=== PATIENT | female | born 1975 | race Caucasian/White ===

== ENCOUNTER 2018-12-14 07:11 | Inpatient (IN) | payer MEDICAID, OTHER ==
[~2018-12-14] VITALS: Ht 175.3 cm; Wt 74.6 kg
[2018-12-14] MEDS ORDERED: SODIUM CHLORIDE 0.9% 1,000 ML IV ONE (07:34)
[2018-12-14] MEDS ORDERED: KETOROLAC TROMETH 15 mg/ml 1ML VL IV ONE (07:45)
[2018-12-14] MEDS: PROMETHAZINE HCL 25 MG/ML 1ML IV PRN (08:02)
[2018-12-14 08:11] LABS: Basophils # (auto) 0 uL; Basophils % (auto) 0.3 % (0.0-2.0); Eosinophils # (auto) 0.1 uL; Eosinophils % (auto) 1.4 % (0.0-7.0); Hematocrit 43.5 % (36.0-46.0); Hemoglobin 15.1 g/dL (12.2-16.2); Lymphocytes # (auto) 1.4 uL; Mean Corpuscular Hgb Conc. 34.7 g/dL (32.0-36.0); Mean Corpuscular Volume 92.2 fL (80.0-100.0); Monocytes # (auto) 0.6 uL; Neutrophils # (auto) 6.9 uL; Neutrophils % (auto) 76.3 % (37.0-80.0); Nucleated Red Blood Cells % 0.1 %; Platelet Count (auto) 212 10^3/uL (140-450); Red Blood Cells 4.72 10^6/uL (4.0-5.20); Red Cell Distribution Width 12.5 % (11.8-14.3); White Blood Cell 9.1 10^3/uL (4.4-10.8)
[2018-12-14 08:27] LABS: Albumin 4.2 g/dL (3.4-5.0); BUN/Creatinine Ratio 15.7; Calcium 8.8 mg/dL (8.5-10.1); Magnesium 2.2 mg/dL (1.6-2.6); Potassium 3.5 mmol/L (3.5-5.1)
[2018-12-14 08:37] LABS: Total Protein 8.3 g/dL (6.4-8.2)
[2018-12-14 09:37] LABS: Urine Bacteria NONE SEEN /hpf (None Seen); Urine Blood TRACE /uL (Negative); Urine Mucus FEW (None Seen); Urine Specific Gravity 1.016 (1.001-1.035); Urine WBC 8 /hpf (0 - 5)
[2018-12-14] MEDS ORDERED: cefTRIAXone 1GM/50ML D5W 50 ML IV ONE (11:30)
[2018-12-14 11:42] LABS: Cholesterol 164 mg/dL (< 200); Triglycerides 472 mg/dL (< 150)
[2018-12-14 11:45] LABS: HDL Cholesterol 46 mg/dL (40-59)
[2018-12-14] MEDS: LACTATED RINGER'S 1,000 ML IV SCH ×2 (11:45→19:45)
[2018-12-14] MEDS ORDERED: NITROGLYCERIN 0.4 MG SL TAB SL PRN (11:45)
[2018-12-14] MEDS ORDERED: MORPHINE SULF INJ 2 MG/ML SYRINGE 1ML IV PRN (11:45)
[2018-12-14] MEDS: FOLIC ACID 1 MG, MULTIPLE VITAMIN 10 ML, MAGNESIUM SULF SDV 50% 8 MEQ, THIAMINE INJ 100... INJ SCH ×5 (12:00)
--- NOTE | 2018-12-14 12:35 | NUR ---
REPORT REPORT RECEIVED FROM SATYA CHUA
--- NOTE | 2018-12-14 13:30 | NUR ---
RECEIVED PATIENT TO THE FLOOR AWAKE ALERT AND ORIENTED. PATIENT AMBULATORY HOWEVER IS IN PAIN 7/10 . WILL CHECK THE EMAR AND MEDICATE ORDERED. BED LOCKED IN LOWEST POSITION WITH TWO SIDE RAILS UP AND CALL LIGHT IN REACH. WILL CONTINUE TO MONITOR. EDUCATED PATIENT ON THE PLAN OF CARE AND TO CALL IF ANYTHING IS NEEDED.
[2018-12-14] MEDS: HYDROmorphone HCL 2 MG/ML VL IV PRN ×3 (13:49→20:38)
--- NOTE | 2018-12-14 14:46 | NUR ---
ORDERS ORDERS WHEN PATIENT CAME UP SAID NPO EXCEPT ICE CHIPS (ACTIVE), HOWEVER ORDER WAS NOT IN STATUS BAR ACTIVE. REPLACED THE ORDER AGAIN.
[2018-12-14 17:00] VITALS: BP 174/93
--- NOTE | 2018-12-14 17:43 | NUR ---
BLOOD PRESSURE PATIENT HAVING HIGH BLOOD PRESSURE SHE IS IN PAIN. I LET HER KNOW I CAN PAGE HOSPITALIST AND LET THEM KNOW SHE DOES NOT WANT TO BECAUSE SHE DOES NOT HAVE HTN AND DOES NOT WANT ANY MEDICATION FOR IT AT THIS TIME. WILL MEDICATE FOR PAIN AND CONTINUE TO MONITOR.
[2018-12-14] MEDS ORDERED: LABETALOL HCL 5 MG/ML ML 20ML VIAL IV PRN (19:30)
[2018-12-14] MEDS: ONDANSETRON HCL 4 MG/2 ML VIAL IV PRN (20:00)
--- NOTE | 2018-12-14 20:30 | NUR ---
BLOOD PRESSURE RECHECKED PATIENT'S BP AFTER RECEIVING LABETALOL IS 197/106 ON RIGHT ARM. RECHECKED ON LEFT ARM SHOWED 166/102. LABETALOL NOT DUE AT THIS TIME. WILL ATTEMPT TO GIVE PAIN MEDICINE AND WILL REASSESS.
--- NOTE | 2018-12-14 21:04 | NUR ---
BP RECHECKED PATIENT AMBULATED TO RESTROOM AND WAS GIVEN PAIN MEDICINE. BP RECHECKED AND BP IS 155/106. WILL CONTINUE TO MONITOR.
[2018-12-14 21:57] VITALS: BP 162/89
[2018-12-14] MEDS ORDERED: hydrALAZINE HCL 20 MG/ML VL IV ONE (22:45)
[2018-12-14] MEDS: LORazepam 2MG/ML-1ML VIAL IV PRN (23:03)
--- NOTE | 2018-12-14 23:36 | NUR ---
bp recheck After administering medication per md orders. bp rechecked with bp 158/96. will continue to monitor.
--- NOTE | 2018-12-15 00:17 | NUR ---
Bp rechecked and ekg performed BP rechecked after administering 155/91. heart rate at this time also checked showing hr in 120s and increased to 130s when sitting up. EKG performed showing sinus tachycardia and incomplete right BBB. will contact hospitalist and report new findings. will continue to monitor.
[2018-12-15 00:30] VITALS: BP 155/98
--- NOTE | 2018-12-15 00:35 | NUR ---
HOSPITALIST CONTACTED INFORMED HOSPITALIST OF BP RECHECKS AND NEW SIGNS OF ELEVATED HR. PATIENT TRANSFERRED TO TELEMETRY AND WILL CONTINUE TO MONITOR FOR NOW. ATIVAN TO BE ADMINISTERED FOR ALCOHOL WITHDRAWAL.
--- NOTE | 2018-12-15 02:34 | NUR ---
SPOKE WITH AFTER HOURS PHARMACY AFTER SPEAKING WITH PATIENT, PATIENT DENIES AN ALLERGY TO ACETAMINOPHEN AND STATES THAT SHE IS JUST NOT SUPPOSED TO TAKE TOO MUCH. INFORMED AFTER HOURS PHARMACY TO ACTIVATE ORDER. WILL CONTINUE TO MONITOR. Addendum: 12/15/18 at 0237 by LOUIE BROWN RN WRONG PATIENT PLEASE DISREGARD
[2018-12-15] MEDS: LORazepam 2MG/ML-1ML VIAL IV PRN ×2 (02:49→14:54)
[2018-12-15] MEDS: LACTATED RINGER'S 1,000 ML IV SCH ×3 (03:45→20:49)
[2018-12-15] MEDS: ONDANSETRON HCL 4 MG/2 ML VIAL IV PRN ×2 (04:11→08:16)
[2018-12-15 05:00] VITALS: BP 152/97
[2018-12-15 06:38] LABS: Basophils # (auto) 0 uL; Basophils % (auto) 0.1 % (0.0-2.0); Eosinophils # (auto) 0.1 uL; Eosinophils % (auto) 0.8 % (0.0-7.0); Hematocrit 42.2 % (36.0-46.0); Hemoglobin 14.8 g/dL (12.2-16.2); Lymphocytes # (auto) 0.8 uL; Mean Corpuscular Hemoglobin 32.8 pg (28.0-32.0); Mean Corpuscular Hgb Conc. 35.1 g/dL (32.0-36.0); Mean Corpuscular Volume 93.4 fL (80.0-100.0); Monocytes # (auto) 0.5 uL; Monocytes % (auto) 4.5 % (0.0-12.0); Neutrophils # (auto) 9.4 uL; Neutrophils % (auto) 87.6 % (37.0-80.0); Platelet Count (auto) 201 10^3/uL (140-450); Red Blood Cells 4.52 10^6/uL (4.0-5.20); Red Cell Distribution Width 12.5 % (11.8-14.3); White Blood Cell 10.7 10^3/uL (4.4-10.8)
[2018-12-15 06:54] LABS: Albumin 4.1 g/dL (3.4-5.0); BUN/Creatinine Ratio 12.5; Calcium 8.4 mg/dL (8.5-10.1); Potassium 3.2 mmol/L (3.5-5.1)
[2018-12-15 06:58] LABS: Bilirubin, Total 0.7 mg/dL (0.2-1.0); Total Protein 8.6 g/dL (6.4-8.2)
[2018-12-15] MEDS: HYDROmorphone HCL 2 MG/ML VL IV PRN ×4 (07:58→20:47)
--- NOTE | 2018-12-15 08:00 | NUR ---
IV insertion IV access obtained, via clean sterile technique by inserting 22 gauge catheter at left hand after 1 attempt. IV secured properly. No trauma to site. Patient tolerated well. NOTE:
--- NOTE | 2018-12-15 08:05 | NUR ---
IV removal IV left AC DC'd with sterile technique, catheter fully intact. Pressure dressing applied to site. Patient tolerated procedure well. Discharged with aftercare instructions per MD. NOTE:
[2018-12-15 09:00] VITALS: BP 163/93
[2018-12-15] MEDS: cefTRIAXone 1GM/50ML D5W 50 ML IV SCH (10:28)
[2018-12-15] MEDS: FOLIC ACID 1 MG, MULTIPLE VITAMIN 10 ML, MAGNESIUM SULF SDV 50% 8 MEQ, THIAMINE INJ 100... INJ SCH ×5 (11:42)
[2018-12-15 13:00] VITALS: BP 150/102
--- NOTE | 2018-12-15 13:45 | NUR ---
Dr. Glynn in to see patient as hospitalist.
[2018-12-15] MEDS: POTASSIUM CHL 20MEQ/100ML 100 ML IV SCH ×2 (14:54→17:20)
[2018-12-15 15:42] LABS: Alcohol, Urine < 3.0 mg/dL (0-5); Amphetamine Screen, Urine NEGATIVE (NEGATIVE); Barbiturate Scree,Urine NEGATIVE (NEGATIVE); Benzodiazephine Screen, Urine NEGATIVE (NEGATIVE); Cannabinoid Screen, Urine POSITIVE (NEGATIVE); Cocaine Screen, Urine NEGATIVE (NEGATIVE); Opiate Scree,Urine POSITIVE (NEGATIVE); Phencyclidine Screen, Urine NEGATIVE (NEGATIVE)
[2018-12-15 17:00] VITALS: BP 153/95
[2018-12-15] MEDS: hydrALAZINE HCL 20 MG/ML VL IV PRN (18:05)
--- NOTE | 2018-12-15 19:30 | NUR ---
Opening shift note Patient in bed alert and oriented x 4 watching TV. Patient's respiration even and unlabored, complained of 9/10 headache with nausea and vomiting. Patient with one episode of vomiting moderate amount of clear liquid. Patient's IV to left hand infiltrated, started (2) IV's one at right hand 22 gauge and one at Left wrist 22 gauge both with good blood return. Patient tolerated procedure with minimal discomfort. Plan of care discussed, patient verbalized understanding, Will continue to monitor.
[2018-12-15] MEDS: PROMETHAZINE HCL 25 MG/ML 1ML IV PRN (20:08)
[2018-12-15 22:00] VITALS: BP 143/85
[2018-12-16] MEDS: PROMETHAZINE HCL 25 MG/ML 1ML IV PRN ×2 (00:49→05:19)
[2018-12-16] MEDS: HYDROmorphone HCL 2 MG/ML VL IV PRN ×6 (00:49→23:10)
[2018-12-16] MEDS: LORazepam 2MG/ML-1ML VIAL IV PRN ×2 (02:34→22:01)
[2018-12-16] MEDS: LACTATED RINGER'S 1,000 ML IV SCH ×3 (03:45→21:55)
[2018-12-16 05:00] VITALS: BP 161/97
[2018-12-16] MEDS: hydrALAZINE HCL 20 MG/ML VL IV PRN ×2 (05:18→13:34)
[2018-12-16 06:06] LABS: Basophils # (auto) 0 uL; Basophils % (auto) 0.2 % (0.0-2.0); Eosinophils # (auto) 0.2 uL; Eosinophils % (auto) 2.6 % (0.0-7.0); Hematocrit 39.8 % (36.0-46.0); Hemoglobin 13.7 g/dL (12.2-16.2); Lymphocytes # (auto) 1.5 uL; Lymphocytes % (auto) 18.5 % (10.0-50.0); Mean Corpuscular Hemoglobin 32.1 pg (28.0-32.0); Mean Corpuscular Hgb Conc. 34.5 g/dL (32.0-36.0); Mean Corpuscular Volume 93.2 fL (80.0-100.0); Monocytes # (auto) 0.6 uL; Monocytes % (auto) 7.4 % (0.0-12.0); Neutrophils # (auto) 5.9 uL; Neutrophils % (auto) 71.3 % (37.0-80.0); Platelet Count (auto) 190 10^3/uL (140-450); Red Blood Cells 4.27 10^6/uL (4.0-5.20); Red Cell Distribution Width 12.9 % (11.8-14.3); White Blood Cell 8.3 10^3/uL (4.4-10.8)
[2018-12-16 06:28] LABS: Magnesium 2.7 mg/dL (1.6-2.6); Potassium 3.7 mmol/L (3.5-5.1)
[2018-12-16 06:35] LABS: BUN/Creatinine Ratio 8.9; Bilirubin, Total 0.7 mg/dL (0.2-1.0); Calcium 8.5 mg/dL (8.5-10.1); Total Protein 7.9 g/dL (6.4-8.2)
--- NOTE | 2018-12-16 07:22 | NUR ---
Opening Shift Note Assumed care of patient, awake and alert. No S/S of distress/SOB or pain. Instructed on POC and to call for assist PRN, will continue to monitor for changes Q1hr and PRN.
[2018-12-16 08:31] VITALS: BP 161/75
--- NOTE | 2018-12-16 08:59 | NUR ---
Dr. Shaikh thompson, awaiting call back.
[2018-12-16] MEDS: cefTRIAXone 1GM/50ML D5W 50 ML IV SCH (09:36)
--- NOTE | 2018-12-16 10:30 | NUR ---
IV DISCONTINUED RIGHT HAND 22 GAUGE IV DISCONTINUED
[2018-12-16 11:57] VITALS: BP 154/105
[2018-12-16] MEDS ORDERED: POTASSIUM CHL 20MEQ/100ML 100 ML IV ONE (12:00)
[2018-12-16] MEDS ORDERED: PANTOPRAZOLE 40 MG/10 ML VIAL INJ IV ONE (12:00)
--- NOTE | 2018-12-16 12:35 | NUR ---
Nutrition Assessment Notes please see attached link for complete assessment Est. Needs BW [id number] kcal (25-30 kcal/kgBW), 74-88 gms pro (1.0-1.2 gms/kgBW). Will continue to monitor pertinent labs and reassess nutrient need prn Addendum: 12/16/18 at [address] Amended: Links added.
[2018-12-16 13:02] LABS: INR 0.98 (0.9-1.15)
[2018-12-16] MEDS: PANTOPRAZOLE 40 MG TAB PO SCH ×2 (13:34→21:55)
[2018-12-16] MEDS ORDERED: POTASSIUM CHL 20 Meq TABLET PO ONE (14:30)
--- NOTE | 2018-12-16 14:32 | NUR ---
Spoke with Dr. Glynn. aware of current labs, per MD administer banana bag today.
[2018-12-16] MEDS: FOLIC ACID 1 MG, MULTIPLE VITAMIN 10 ML, MAGNESIUM SULF SDV 50% 8 MEQ, THIAMINE INJ 100... INJ SCH ×5 (15:36)
--- NOTE | 2018-12-16 16:08 | NUR ---
Dr. Glynn paged awaiting call back.
[2018-12-16 16:50] VITALS: BP 151/92
--- NOTE | 2018-12-16 18:35 | NUR ---
Dr. Worthington returned page. Patient's blood pressure is 151/86 after treatment, per MD if SBP > 160 call for orders.
--- NOTE | 2018-12-16 19:22 | NUR ---
Change of shift given to restaurant shift leader RN. No distress noted.
--- NOTE | 2018-12-16 19:45 | NUR ---
OPENING SHIFT NOTE PT ALERT AND ORIENTED X 4, VERBALLY COHERENT, ABLE TO MAKE NEEDS KNOWN. PATIENT DENIES PAIN AND DISCOMFORT AT THIS TIME. PLAN OF CARE DISCUSSED, PATIENT VERBALIZED UNDERSTANDING. WILL CONTINUE TO MONITOR.
--- NOTE | 2018-12-16 20:00 | NUR ---
BLOOD PRESSURE AT 146/97. PT NOT IN ACUTE DISTRESS. WILL CONTINUE TO MONITOR.
[2018-12-16 22:00] VITALS: BP 146/97
[2018-12-17] MEDS: LORazepam 2MG/ML-1ML VIAL IV PRN (01:49)
[2018-12-17] MEDS: HYDROmorphone HCL 2 MG/ML VL IV PRN ×2 (03:08→06:49)
[2018-12-17 05:00] VITALS: BP 162/78
[2018-12-17 06:22] LABS: Hematocrit 38.3 % (36.0-46.0); Hemoglobin 13.3 g/dL (12.2-16.2)
[2018-12-17 06:33] LABS: Magnesium 2.6 mg/dL (1.6-2.6); Potassium 3.7 mmol/L (3.5-5.1)
[2018-12-17] MEDS: hydrALAZINE HCL 20 MG/ML VL IV PRN (06:49)
[2018-12-17] MEDS: LACTATED RINGER'S 1,000 ML IV SCH ×2 (08:00→18:10)
[2018-12-17 09:00] VITALS: BP 146/76
--- NOTE | 2018-12-17 09:02 | NUR ---
Patient noted to have severe headache and tremors. Spoke with Dr. Coronel. New orders received.
[2018-12-17] MEDS: cefTRIAXone 1GM/50ML D5W 50 ML IV SCH (09:47)
[2018-12-17] MEDS: PANTOPRAZOLE 40 MG TAB PO SCH ×2 (09:47→22:00)
[2018-12-17] MEDS: HYDROcodone-ACET 7.5/325MG TAB PO PRN ×2 (09:48→19:40)
[2018-12-17] MEDS ORDERED: PANTOPRAZOLE 40 MG/10 ML VIAL INJ IV SCH (10:00)
[2018-12-17] MEDS ORDERED: LACTULOSE 20Gm/30ML SOLN PO ONE (10:15)
[2018-12-17] MEDS: chlordiazePOXIDE HCL 5 MG CAP PO SCH ×3 (12:16→21:33)
[2018-12-17] MEDS: LABETALOL HCL 5 MG/ML ML 20ML VIAL IV PRN ×2 (12:24→17:45)
[2018-12-17 13:00] VITALS: BP 155/91
[2018-12-17] MEDS: FOLIC ACID 1 MG, MULTIPLE VITAMIN 10 ML, MAGNESIUM SULF SDV 50% 8 MEQ, THIAMINE INJ 100... INJ SCH ×5 (13:51)
[2018-12-17 17:32] VITALS: BP 157/95
[2018-12-17] MEDS: LACTULOSE 20Gm/30ML SOLN PO SCH ×2 (17:53→23:37)
[2018-12-17] MEDS ORDERED: amLODIPine BESYLATE 5 MG TAB PO ONE (19:00)
--- NOTE | 2018-12-17 19:24 | NUR ---
Change of shift given to retail shift leader RN. No distress noted.
[2018-12-17] MEDS: TEMAZEPAM 15 MG CAP PO PRN (21:33)
[2018-12-17 22:00] VITALS: BP 143/90
--- NOTE | 2018-12-17 23:37 | NUR ---
Patient refused her Lactulose, stated "I don't need that medication anymore, I have my bowel movement today"
--- NOTE | 2018-12-17 23:39 | NUR ---
Patient requested to have a break with her IV fluid (LR).
[2018-12-18] MEDS: HYDROcodone-ACET 7.5/325MG TAB PO PRN ×2 (02:40→06:58)
--- NOTE | 2018-12-18 03:10 | NUR ---
Patient crying stated that Whatley given earlier not effective and asking for a stronger medication. Patient is asking to transfer service to her primary care, Dr Bryson Joaquin. Paged FRANCIE Aguilera awaiting call back. Charge nurse made aware and informed of patient status and request.
[2018-12-18] MEDS ORDERED: SUMAtriptan SUCCINATE 25 MG TAB PO ONE (03:25)
--- NOTE | 2018-12-18 03:26 | NUR ---
Received call back from FRANCIE Aguilera with new order for Sumatriptan 50mg po x 1. All orders noted, read back and carried out.
--- NOTE | 2018-12-18 03:45 | NUR ---
Called [facility] to verify the Sumatriptan.
[2018-12-18] MEDS: LACTATED RINGER'S 1,000 ML IV SCH ×3 (04:00→23:53)
--- NOTE | 2018-12-18 04:00 | NUR ---
Informed patient and pt's mother Dr. Joaquin [place] this [place]. Pt and mother said to cancel the request to transfer service.
[2018-12-18 04:30] VITALS: BP 156/96
[2018-12-18] MEDS: LABETALOL HCL 5 MG/ML ML 20ML VIAL IV PRN (05:22)
[2018-12-18] MEDS: chlordiazePOXIDE HCL 5 MG CAP PO SCH ×4 (05:23→22:04)
[2018-12-18] MEDS: LACTULOSE 20Gm/30ML SOLN PO SCH ×4 (05:23→23:53)
[2018-12-18 07:30] VITALS: BP 147/89
--- NOTE | 2018-12-18 07:30 | NUR ---
BLOOD PRESSURE REASSESSMENT OF PATIENTS BP AFTER NIGHT [employer] ADMINISTRATION. PATIENTS BP OF 147/89. WILL CONTINUE TO MONITOR.
--- NOTE | 2018-12-18 07:30 | NUR ---
Opening Shift Note Assumed care of patient. Patient is awake and alert. No S/S of distress/SOB or pain. Instructed on POC and to call for assist PRN, will continue to monitor. Bed locked in the lowest position. Bed rails up x2. Call light in reach.
[2018-12-18 09:00] VITALS: BP 154/88
[2018-12-18] MEDS: cefTRIAXone 1GM/50ML D5W 50 ML IV SCH (09:06)
[2018-12-18] MEDS: PANTOPRAZOLE 40 MG TAB PO SCH ×2 (09:08→22:04)
[2018-12-18] MEDS: amLODIPine BESYLATE 5 MG TAB PO SCH (09:09)
--- NOTE | 2018-12-18 11:20 | NUR ---
NEW ORDERS RECEIVED. ORDERS READ BACK AND VERIFIED.
[2018-12-18 13:00] VITALS: BP 142/86
--- NOTE | 2018-12-18 13:30 | NUR ---
PAGED PAGED DR. LEYVA TO CLARIFY OBTAIN CONSENT ORDERS. AWAITING CALL BACK.
[2018-12-18] MEDS: FOLIC ACID 1 MG, MULTIPLE VITAMIN 10 ML, MAGNESIUM SULF SDV 50% 8 MEQ, THIAMINE INJ 100... INJ SCH ×5 (13:31)
[2018-12-18] MEDS: HYDROcodone-ACET 10/325MG TAB PO PRN ×2 (13:33→22:05)
[2018-12-18 17:35] VITALS: BP 125/83
[2018-12-18] MEDS: SUMAtriptan SUCCINATE 25 MG TAB PO PRN (17:51)
--- NOTE | 2018-12-18 19:00 | NUR ---
CLOSING NOTE Patient is awake and alert. No S/S of distress/SOB or pain. Bed locked in the lowest position. Bed rails up x2. Call light in reach. Endorsed care to night RN.
--- NOTE | 2018-12-18 19:45 | NUR ---
Opening Shift Note Assumed care of patient, awake and alert. No S/S of distress/SOB or pain. Bed locked in lowest position, side rails upx2, call light within reach. Instructed on POC and to call for assist PRN, will continue to monitor for changes Q1hr and PRN.
[2018-12-18 22:00] VITALS: BP 152/99
[2018-12-18] MEDS: TEMAZEPAM 15 MG CAP PO PRN (22:05)
[2018-12-19] MEDS: HYDROcodone-ACET 10/325MG TAB PO PRN ×2 (04:15→14:28)
[2018-12-19 05:00] VITALS: BP 148/95
[2018-12-19] MEDS: LACTULOSE 20Gm/30ML SOLN PO SCH ×3 (06:00→18:00)
[2018-12-19] MEDS: chlordiazePOXIDE HCL 5 MG CAP PO SCH ×3 (06:00→18:00)
[2018-12-19 06:16] LABS: Basophils # (auto) 0 uL; Basophils % (auto) 0.7 % (0.0-2.0); Eosinophils # (auto) 0.3 uL; Eosinophils % (auto) 7.9 % (0.0-7.0); Hematocrit 39.6 % (36.0-46.0); Hemoglobin 13.4 g/dL (12.2-16.2); Lymphocytes # (auto) 1.2 uL; Lymphocytes % (auto) 31.6 % (10.0-50.0); Mean Corpuscular Hemoglobin 31.9 pg (28.0-32.0); Mean Corpuscular Hgb Conc. 33.8 g/dL (32.0-36.0); Mean Corpuscular Volume 94.2 fL (80.0-100.0); Monocytes # (auto) 0.5 uL; Monocytes % (auto) 11.9 % (0.0-12.0); Neutrophils # (auto) 1.9 uL; Neutrophils % (auto) 47.9 % (37.0-80.0); Nucleated Red Blood Cells % 0.1 %; Platelet Count (auto) 189 10^3/uL (140-450); Red Cell Distribution Width 12.6 % (11.8-14.3); White Blood Cell 3.9 10^3/uL (4.4-10.8)
[2018-12-19 06:34] LABS: BUN/Creatinine Ratio 5.1; Calcium 8.5 mg/dL (8.5-10.1); Potassium 3.6 mmol/L (3.5-5.1)
--- NOTE | 2018-12-19 08:00 | NUR ---
Opening Shift Note Assumed care of patient, awake and alert sitting up in bed. No S/S of distress/SOB or pain. Instructed on POC and to call for assist PRN, will continue to monitor for changes Q1hr and PRN. NPO status maintained for procedure.
[2018-12-19] MEDS ORDERED: LIDOCAINE VISCOUS 2% 15ML UD ONE (08:34)
[2018-12-19] MEDS ORDERED: diphenhdrAMINE HCL 50 MG/1 ML VL ONE (08:35)
[2018-12-19 09:21] VITALS: BP 137/81
[2018-12-19] MEDS: PANTOPRAZOLE 40 MG TAB PO SCH (09:29)
[2018-12-19] MEDS: amLODIPine BESYLATE 5 MG TAB PO SCH (09:29)
[2018-12-19] MEDS: cefTRIAXone 1GM/50ML D5W 50 ML IV SCH (09:29)
[2018-12-19] MEDS: LACTATED RINGER'S 1,000 ML IV SCH (10:00)
--- NOTE | 2018-12-19 10:00 | NUR ---
Off Unit Patient taken to pre-op for procedure.
--- NOTE | 2018-12-19 10:30 | NUR ---
Rounding Hospitalist in to see patient. Patient off unit at procedure at this time. Will notify once patient returns to unit.
[2018-12-19] MEDS: fentaNYL CITRATE 100 MCG/2 ML VL ONE ×2 (11:04→11:07)
[2018-12-19] MEDS: MIDAZOLAM HCL 5 MG/ML-1ML VIAL ONE ×2 (11:04→11:07)
[2018-12-19] MEDS: FOLIC ACID 1 MG, MULTIPLE VITAMIN 10 ML, MAGNESIUM SULF SDV 50% 8 MEQ, THIAMINE INJ 100... INJ SCH ×5 (12:30)
[2018-12-19] MEDS: SUMAtriptan SUCCINATE 25 MG TAB PO PRN (12:39)
[2018-12-19 12:55] VITALS: BP 129/77
[2018-12-19] MEDS ORDERED: AML5T PO (14:44)
[2018-12-19] MEDS ORDERED: PANT40TA2 PO (14:44)
[2018-12-19 16:40] VITALS: BP 129/77
[2018-12-19 17:27] VITALS: BP 127/88
--- NOTE | 2018-12-19 19:30 | NUR ---
Opening Shift Note Assumed care of patient, awake and alert x4. No S/S of distress/SOB or pain. Call light is within reach, bed in in lowest postion. Instructed on POC and to call for assist PRN. Discharge packet given, all questions and concerns answered. Will continue to monitor for changes PRN.
--- NOTE | 2018-12-19 20:20 | NUR ---
Taxi voucher called.
--- NOTE | 2018-12-19 21:00 | NUR ---
Discharge instructions given as ordered. Encourage to follow up with PMD as instructed. All questions and concerns addressed. Patient verbalized understanding. Medication reconciliation form completed and copy given to patient. IV removed with catheter intact, pressure dressing applied. Telemetry unit returned to [facility]. Patient taken to [facility] by ambulation with all personal belongings, accompanied by staff. No distress noted at time of departure.
== END 2018-12-19 21:00 | disposition home or self-care (01) | DRG 241 ==
LOC: ER 07:11 → OVERFLOW 07:12 → EAST 13:46 → TELE-EAST 12-15 02:12
PROVIDERS: ADMIT Nurse Practitioner Acute Care; ATTEND Internal Medicine
PROC: 0DB68ZX Excision of Stomach, Via Natural or Artificial Opening Endoscopic, Diagnostic (ICD-10-PCS; principal; 2018-12-19 10:31)
DX: K29.60 Other gastritis without bleeding (principal); K85.20 Alcohol induced acute pancreatitis without necrosis or infection; N28.1 Cyst of kidney, acquired; M41.9 Scoliosis, unspecified; N39.0 Urinary tract infection, site not specified; F12.10 Cannabis abuse, uncomplicated; K59.00 Constipation, unspecified; F10.20 Alcohol dependence, uncomplicated; Y90.9 Presence of alcohol in blood, level not specified; G43.909 Migraine, unspecified, not intractable, without status migrainosus; R03.0 Elevated blood-pressure reading, without diagnosis of hypertension; Z87.442 Personal history of urinary calculi; Z91.19 Patient's noncompliance with other medical treatment and regimen; Z98.51 Tubal ligation status; Z71.41 Alcohol abuse counseling and surveillance of alcoholic; Z71.51 Drug abuse counseling and surveillance of drug abuser; Z79.899 Other long term (current) drug therapy
CPT/HCPCS: 36415; 43239; 74176; 76705; 80048; 80053; 80061; 80307; 81001; 81025; 82150; 83690; 83735; 84132; 84443; 84702; 85014; 85018; 85025; 85610; 87086; 96365; 96367; 96375; G0378; J0696; J2250; J2405; J3480

== ENCOUNTER 2019-04-07 09:42 | Emergency (ER) | payer MEDICAID ==
[~2019-04-07] VITALS: Ht 175.3 cm; Wt 72.1 kg
[~2019-04-07 09:42] MED LIST: AML5T PO; PANT40TA2 PO
[2019-04-07 09:50] VITALS: BP 132/55
== END 2019-04-07 10:59 | disposition home or self-care (01) ==
LOC: ER 09:48
DX: S93.401A Sprain of unspecified ligament of right ankle, initial encounter (principal); Z98.51 Tubal ligation status; X50.1XXA Overexertion from prolonged static or awkward postures, initial encounter; Y93.01 Activity, walking, marching and hiking; Y92.89 Other specified places as the place of occurrence of the external cause; Y99.8 Other external cause status
CPT/HCPCS: 73610

== ENCOUNTER 2019-04-19 11:44 | Emergency (ER) | payer MEDICAID ==
[~2019-04-19] VITALS: Ht 175.3 cm; Wt 75.7 kg
[2019-04-19 11:50] VITALS: BP 159/72
== END 2019-04-19 14:01 | disposition home or self-care (01) ==
LOC: ER 11:44
DX: M25.571 Pain in right ankle and joints of right foot (principal)
CPT/HCPCS: 29515

== ENCOUNTER 2019-11-03 22:14 | Emergency (ER) | payer SELFPAY ==
[~2019-11-03] VITALS: Ht 167.6 cm; Wt 68.0 kg
[2019-11-03 22:54] LABS: Basophils # (auto) 0 10 ^3/uL (0-0.2); Basophils % (auto) 0.2 % (0.0-2.0); Eosinophils # (auto) 0.1 10 ^3/uL (0-0.8); Eosinophils % (auto) 1.1 % (0.0-7.0); Hematocrit 34.7 % (36.0-46.0); Hemoglobin 11.5 g/dL (12.2-16.2); Lymphocytes # (auto) 1.2 10 ^3/uL (0.4-5.4); Lymphocytes % (auto) 18.1 % (10.0-50.0); Mean Corpuscular Hemoglobin 31.5 pg (28.0-32.0); Mean Corpuscular Hgb Conc. 33.2 g/dL (32.0-36.0); Mean Corpuscular Volume 94.9 fL (80.0-100.0); Monocytes # (auto) 0.5 10 ^3/uL (0-1.3); Monocytes % (auto) 7.7 % (0.0-12.0); Neutrophils # (auto) 4.9 10 ^3/uL (1.6-8.6); Neutrophils % (auto) 72.9 % (37.0-80.0); Platelet Count (auto) 199 10^3/uL (140-450); Red Blood Cells 3.66 10^6/uL (4.0-5.20); Red Cell Distribution Width 12.6 % (11.8-14.3); White Blood Cell 6.7 10^3/uL (4.4-10.8)
[2019-11-03 23:25] LABS: Acetaminophen < 2.0 ug/mL (10-30); Alanine Aminotransferase 44 U/L (13-56); Albumin 3.2 g/dL (3.4-5.0); Anion Gap 8 (5-15); Aspartate Aminotransferase 71 U/L (15-37); BUN/Creatinine Ratio 17.6; Blood Alcohol < 3.0 mg/dL (0-5); Blood Urea Nitrogen 16 mg/dL (7-18); Calcium 7.8 mg/dL (8.5-10.1); Carbon Dioxide 27 mmol/L (21-32); Chloride 103 mmol/L (98-107); GFR African American 87 mL/min; GFR Non-African American 72 mL/min; Glucose 186 mg/dL (74-106); Magnesium 2.2 mg/dL (1.6-2.6); Potassium 3.3 mmol/L (3.5-5.1); Salicylate < 1.7 mg/dL (2.8-20.0); Sodium 138 mmol/L (136-145)
[2019-11-03 23:28] LABS: Alkaline Phosphatase 75 U/L (45-117); Bilirubin, Total 0.2 mg/dL (0.2-1.0); Total Protein 6.8 g/dL (6.4-8.2)
[2019-11-03] MEDS ORDERED: SODIUM CHLORIDE 0.9% 2,000 ML IV ONE (23:30)
[2019-11-04] MEDS ORDERED: IPRATROPIUM BROM 0.5 MG/2.5ML INH SOL NEB ONE (02:00)
[2019-11-04] MEDS ORDERED: ALBUTEROL SULF 2.5 MG/0.5ML(0.5%) NEB SOLN NEB ONE (02:00)
[2019-11-04 05:15] VITALS: BP 102/52
== END 2019-11-04 02:34 | disposition home or self-care (01) ==
LOC: EDBD 22:14 → ER 22:16
DX: T50.901A Poisoning by unspecified drugs, medicaments and biological substances, accidental (unintentional), initial encounter (principal); R41.82 Altered mental status, unspecified; G92 Toxic encephalopathy; E87.6 Hypokalemia
CPT/HCPCS: 36415; 71045; 80053; 80320; 80329; 83735; 85025; 93005; 96360; 96361; 99285; J7030